=== PATIENT | male | born 1970 | race Caucasian/White ===

== ENCOUNTER 2017-11-26 10:07 | Inpatient (IN) | payer OTHER ==
[2017-11-26] VITALS (10 sets, daily range): BP systolic 101–133; BP diastolic 59–78; PULSE 75–108; RESP 16–22; TEMP 98.2–98.5; O2SAT 94–97
[~2017-11-26] VITALS: Ht 175.3 cm; Wt 98.0 kg
[~2017-11-26 10:07] MED LIST: MORPHINE SULFATE 4 MG/ML INJ IV PUSH ONE
[2017-11-26] MEDS ORDERED: IOHEXOL 350 MG/ML 10 ML VIAL (for RAD DIAG) IVCONTRAST ONE (10:08)
[2017-11-26] MEDS ORDERED: DIPHTH/TETANUS/ACEL PERTUSSIS (BOOSTER) 0.5 ML VIAL/PFS IM ONE (10:12)
[2017-11-26] MEDS ORDERED: ceFAZolin INJ 1,000 MG VIAL ONE (10:12)
[2017-11-26] MEDS ORDERED: HYDROmorphone HCL PF 2 MG/ML VIAL ONE (10:18)
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
[2017-11-26 10:36] LABS: AUTOMATED NEUTROPHIL # 3.8 TH/MM3 (1.8-7.7); BASOPHIL % 0.7 % (0.0-2.0); EOSINOPHIL # 0.1 TH/MM3 (0-0.4); EOSINOPHIL % 2.1 % (0.0-4.0); HEMATOCRIT 42.5 % (39.0-51.0); LYMPH % 17.7 % (9.0-44.0); MEAN CELL VOLUME 89.8 FL (80.0-100.0); MEAN CORPUSCULAR HEMOGLOBIN 29.7 PG (27.0-34.0); MEAN CORPUSCULAR HGB CONC 33.1 % (32.0-36.0); MEAN PLATELET VOLUME 8.6 FL (7.0-11.0); MONO % 8.8 % (0.0-8.0); MONOCYTE # 0.5 TH/MM3 (0-0.9); NEUT % 70.7 % (16.0-70.0); PLATELET COUNT 175 TH/MM3 (150-450); RED BLOOD COUNT 4.73 MIL/MM3 (4.50-5.90); RED CELL DISTRIBUTION WIDTH 15.1 % (11.6-17.2); WHITE BLOOD COUNT 5.4 TH/MM3 (4.0-11.0)
[2017-11-26 10:47] LABS: INTERNATIONAL NORMALIZED RATIO 1.1 RATIO; PROTHROMBIN TIME - PATIENT 11.2 SEC (9.8-11.6)
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
--- NOTE | 2017-11-26 12:39 | PD ---
Physical Exam Time Seen by Provider: 12:38 Data Data Last Documented VS Vital Signs Date Time Temp Pulse Resp B/P (MAP) Pulse Ox O2 Delivery O2 Flow Rate FiO2 11/26/17 11:12 94 Nasal Cannula 2.00 11/26/17 11:00 92 19 131/78 (95) Orders Orders I-Stat Profile (11/26/17 10:08) Complete Blood Count With Diff (11/26/17 10:08) Prothrombin Time / Inr (Pt) (11/26/17 10:08) Act Partial Throm Time (Ptt) (11/26/17 10:08) Type And Screen (11/26/17 10:08) Chest, Single Ap (11/26/17 10:08) Pelvis, Ap Only (Routine) (11/26/17 10:08) Ct Brain W/O Iv Contrast(Rout) (11/26/17 10:08) Ct Cerv Spine W/O Contrast (11/26/17 10:08) Ct Abd/Pel W Iv Contrast(Rout) (11/26/17 10:08) Ct Thorax/ Chest W Iv Contrast (11/26/17 10:08) Iv Access Insert/Monitor (11/26/17 10:08) Ecg Monitoring (11/26/17 10:08) Oximetry (11/26/17 10:08) Oxygen Administration (11/26/17 10:08) Tibia/Fibula (Ap/Lat) (11/26/17 ) Uxoi-Tnw-Yznnps (Booster) Inj (Boostrix (11/26/17 10:12) Cefazolin Inj (Ancef Inj) (11/26/17 10:12) Hydromorphone Pf Inj (Dilaudid Pf Inj) (11/26/17 10:18) Iohexol 350 Inj (Omnipaque 350 Inj) (11/26/17 10:08) Ct Knee W/O Contrast (11/26/17 ) Labs Laboratory Tests Test 11/26/17 10:15 White Blood Count 5.4 TH/MM3 Red Blood Count 4.73 MIL/MM3 Hemoglobin 14.0 GM/DL Bedside Hemoglobin 11.6 G/DL Hematocrit 42.5 % Bedside Hematocrit 34.0 % Mean Corpuscular Volume 89.8 FL Mean Corpuscular Hemoglobin 29.7 PG Mean Corpuscular Hemoglobin Concent 33.1 % Red Cell Distribution Width 15.1 % Platelet Count 175 TH/MM3 Mean Platelet Volume 8.6 FL Neutrophils (%) (Auto) 70.7 % Lymphocytes (%) (Auto) 17.7 % Monocytes (%) (Auto) 8.8 % Eosinophils (%) (Auto) 2.1 % Basophils (%) (Auto) 0.7 % Neutrophils # (Auto) 3.8 TH/MM3 Lymphocytes # (Auto) 1.0 TH/MM3 Monocytes # (Auto) 0.5 TH/MM3 Eosinophils # (Auto) 0.1 TH/MM3 Basophils # (Auto) 0.0 TH/MM3 CBC Comment DIFF FINAL Differential Comment Prothrombin Time 11.2 SEC Prothromb Time International Ratio 1.1 RATIO Activated Partial Thromboplast Time 21.5 SEC Bedside Sodium 138 MMOL/L Bedside Potassium 6.3 MMOL/L Bedside Chloride 106 MMOL/L Bedside Blood Urea Nitrogen 21 MG/DL Bedside Creatinine 1.3 MG/DL Bedside Glucose 173 MG/DL [facility] Medical Record Reviewed: Yes Supervised Visit with ABIDA: No Procedures Procedure Narrative LACERATION LOCATION: Right lower extremity LENGTH: 6 cm NUMBER OF STITCHES/DENNYS: 4 horizontal mattress REPAIR: The area of the laceration was prepped with Betadine and sterilely draped. The laceration was infiltrated with 1% lidocaine with epinephrine. The wound was copiously irrigated and explored without evidence of foreign body , tendon injury or neurovascular injury. The wound was closed using 4-0 Prolene. This was a single layer repair. Patient tolerated the procedure well. Diagnosis Primary Impression: Right patella fracture Additional Impressions: Fall from high place Laceration of right lower leg Scripts No Active Prescriptions or Reported Meds Mary Lujan November 26, 2017 12:39
--- NOTE | 2017-11-26 14:12 | RADRPT ---
EXAM DATE/TIME: 11/26/2017 13:23 [facility] COMPARISON: TIBIA/FIBULA RIGHT (AP/LAT), November 26, 2017, 10:09. CT THORAX W CONTRAST, November 26, 2017, 10:25. INDICATIONS : Trauma, painful right knee. RADIATION DOSE: 14.40 CTDIvol (mGy) MEDICAL HISTORY : None SURGICAL HISTORY : None. ENCOUNTER: Initial ACUITY: 1 day PAIN SCALE: 10/10 LOCATION: Right knee TECHNIQUE: Volumetric scanning of the knee was performed. Using automated exposure control and adjustment of th e mA and/or kV according to patient size, radiation dose was kept as low as reasonably achievable to obtain optimal diagnostic quality images. DICOM format image data is available electronically for re view and comparison. FINDINGS: Examination of the right knee demonstrates a comminuted, minimally displaced fracture of the patella. The remainder the visualized osseous structures are intact. There is a moderate sized joint effusion . CONCLUSION: 1. Comminuted fracture of the patella with minimal distraction. There is approximately 4 mm of distra ction of the superior fragment. The articular surface appears fairly well aligned. The osseous struct ures of the knee are otherwise intact. 2. Moderate size joint effusion. Lefty Castillo MD on November 26, 2017 at 14:07 Board Certified Radiologist. This report was verified electronically.
[2017-11-26] MEDS ORDERED: ACETAMINOPHEN/HYDROcodone 325 MG/5 MG TAB PO ONE (15:15)
[2017-11-26] MEDS ORDERED: ACETAMINOPHEN/HYDROcodone 325 MG/5 MG TAB PO PRN (17:00)
[2017-11-26] MEDS ORDERED: ENALAPRILAT 1.25 MG/ML VIAL IV PUSH PRN (17:00)
[2017-11-26] MEDS ORDERED: MAGNESIUM HYDROXIDE SUSP 30 ML CUP PO PRN (17:00)
[2017-11-26] MEDS ORDERED: ONDANSETRON ODT 4 MG TAB SL PRN (17:15)
[2017-11-26] MEDS: HYDROmorphone HCL PF 0.5 MG/0.5 ML SYRINGE IV PRN ×3 (17:27→23:52)
[2017-11-26] MEDS: SODIUM CHLORIDE 0.9% FLUSH 10 ML FLUSH IV FLUSH PRN ×2 (17:28→23:50)
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
[2017-11-26] MEDS ORDERED: PANTOPRAZOLE SODIUM 40 MG VIAL IVP SCH (18:00)
[2017-11-26] MEDS: SODIUM CHLOR 0.9% 1000 ML INJ 1,000 ML IV SCH (18:05)
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
[2017-11-26] MEDS: ACETAMINOPHEN/HYDROcodone 325 MG/5 MG TAB PO PRN (20:50)
[2017-11-26] MEDS ORDERED: DOCUSATE SODIUM 100 MG CAP PO SCH (21:00)
[2017-11-27] MEDS: SODIUM CHLOR 0.9% 1000 ML INJ 1,000 ML IV SCH ×2 (02:05→23:00)
[2017-11-27] MEDS: ACETAMINOPHEN/HYDROcodone 325 MG/5 MG TAB PO PRN (02:27)
[2017-11-27 03:51] VITALS: BP 109/69; PULSE 78; RESP 16; TEMP 98.3; O2SAT 94
[2017-11-27] MEDS: HYDROmorphone HCL PF 0.5 MG/0.5 ML SYRINGE IV PRN ×2 (05:28→17:35)
[2017-11-27] MEDS: METHOCARBAMOL 500 MG TAB PO SCH ×3 (06:54→21:09)
[2017-11-27 07:34] LABS: AUTOMATED NEUTROPHIL # 1.8 TH/MM3 (1.8-7.7); BASOPHIL % 0.4 % (0.0-2.0); EOSINOPHIL # 0.3 TH/MM3 (0-0.4); EOSINOPHIL % 7.9 % (0.0-4.0); HEMOGLOBIN 12.3 GM/DL (13.0-17.0); LYMPH % 25.7 % (9.0-44.0); LYMPHOCYTE # 0.8 TH/MM3 (1.0-4.8); MEAN CORPUSCULAR HEMOGLOBIN 29.8 PG (27.0-34.0); MEAN CORPUSCULAR HGB CONC 33.1 % (32.0-36.0); MEAN PLATELET VOLUME 10.1 FL (7.0-11.0); MONO % 10.4 % (0.0-8.0); MONOCYTE # 0.3 TH/MM3 (0-0.9); NEUT % 55.6 % (16.0-70.0); PLATELET COUNT 129 TH/MM3 (150-450); RED BLOOD COUNT 4.11 MIL/MM3 (4.50-5.90); RED CELL DISTRIBUTION WIDTH 15.9 % (11.6-17.2); WHITE BLOOD COUNT 3.2 TH/MM3 (4.0-11.0)
[2017-11-27 08:00] VITALS: BP 117/73; PULSE 82; RESP 16; TEMP 98; O2SAT 96
[2017-11-27 08:06] LABS: ALKALINE PHOSPHATASE 57 U/L (45-117); TOTAL PROTEIN 6.8 GM/DL (6.4-8.2)
[2017-11-27 08:08] LABS: ALBUMIN 3.1 GM/DL (3.4-5.0); ALT (GPT) 47 U/L (12-78); AST (GOT) 68 U/L (15-37); BICARBONATE 23.9 MEQ/L (21.0-32.0); BLOOD UREA NITROGEN 10 MG/DL (7-18); CALCIUM 7.6 MG/DL (8.5-10.1); CHLORIDE 106 MEQ/L (98-107); CREATININE 0.94 MG/DL (0.60-1.30); GLOMERULAR FILTRATION RATE 69 ML/MIN (>89); GLUCOSE,RANDOM 83 MG/DL (74-106); SODIUM (NA) 138 MEQ/L (136-145)
[2017-11-27] MEDS: ACETAMINOPHEN/HYDROcodone 325 MG/10 MG TAB PO PRN ×5 (09:36→23:58)
[2017-11-27] MEDS: DOCUSATE SODIUM 50 MG/SENNA 8.6 MG TAB PO SCH ×2 (09:37→21:09)
[2017-11-27] MEDS: FAMOTIDINE 20 MG TAB PO SCH ×2 (09:37→21:09)
[2017-11-27] MEDS: LIDOCAINE HCL 5% PATCH T-DERMAL SCH (09:38)
--- NOTE | 2017-11-27 10:38 | RADRPT ---
EXAM DATE/TIME: 11/27/2017 10:10 [facility] COMPARISON: No previous studies available for comparison. INDICATIONS : Trauma. MEDICAL HISTORY : None. SURGICAL HISTORY : None. ENCOUNTER: Subsequent ACUITY: 2 days PAIN SCORE: 10/10 LOCATION: Right Ankle. FINDINGS: The ankle was performed in a leg splint. The osseous structures are grossly in normal alignment. No fracture seen. There is mild lateral soft tissue swelling. No radiopaque foreign bodies seen. CONCLUSION: Lateral soft tissue swelling. No evidence of fracture or dislocation. Adonay Bourgeois MD on November 27, 2017 at 10:35 Board Certified Radiologist. This report was verified electronically.
[2017-11-27 12:00] VITALS: BP 120/69; PULSE 79; RESP 16; TEMP 97.9; O2SAT 95
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
[2017-11-27 16:00] VITALS: BP 120/78; PULSE 89; RESP 16; TEMP 98; O2SAT 94
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
[2017-11-27] MEDS ORDERED: PERI PO (19:54)
[2017-11-27] MEDS ORDERED: MAGN30S PO (19:54)
--- NOTE | 2017-11-27 19:57 | HHI.FF ---
Face to Face Verification Diagnosis: (1) Traumatic compression fracture of T4 thoracic vertebra (2) Laceration of right lower leg (3) Right patella fracture (4) Fall from high place Physical Therapy Order: Evaluate and Treat, Improve ambulation, Strength and gait training Home Health Nursing Order: Medical education Signs/symptoms of disease process Medication education-adverse effect Nursing assessment with vital signs I have seen patient Carols Caraballo on 11/27/17. My clinical findings support the need for the requested home health care services because: Ltd mobility - disease progression Deconditioned w/ increased weakness Limited ability to care for self High risk of falls Infection w/ risk of complications I certify that my clinical findings support that this patient is homebound because: Post-op weakness Unsteady gait/balance Unsafe to leave home unassisted Aju-[id number]-[id number] bed/chair Unable to use public transportation Nayeli Blue November 27, 2017 19:57
[2017-11-27] MEDS ORDERED: WALKER WHEELS/F1 MIS (19:58)
[2017-11-27 20:00] VITALS: BP 114/65; PULSE 89; RESP 20; TEMP 97.9; O2SAT 92
[2017-11-27] MEDS: REMOVE OLD PATCH-LIDOCAINE T-DERMAL SCH (21:13)
[2017-11-27 23:59] VITALS: BP 122/73; PULSE 92; RESP 18; TEMP 97.8; O2SAT 94
[2017-11-28] VITALS (7 sets, daily range): BP systolic 114–132; BP diastolic 64–78; PULSE 78–92; RESP 18; TEMP 97.6–98.4; O2SAT 91–97
[2017-11-28] MEDS: ACETAMINOPHEN/HYDROcodone 325 MG/10 MG TAB PO PRN ×5 (05:47→20:35)
[2017-11-28] MEDS: METHOCARBAMOL 500 MG TAB PO SCH ×3 (05:47→20:36)
[2017-11-28] MEDS: FAMOTIDINE 20 MG TAB PO SCH ×2 (07:54→20:36)
[2017-11-28] MEDS: HYDROmorphone HCL PF 0.5 MG/0.5 ML SYRINGE IV PRN ×5 (07:54→21:56)
[2017-11-28] MEDS: DOCUSATE SODIUM 50 MG/SENNA 8.6 MG TAB PO SCH ×2 (07:54→20:36)
[2017-11-28] MEDS: LIDOCAINE HCL 5% PATCH T-DERMAL SCH (08:01)
[2017-11-28] MEDS: SODIUM CHLOR 0.9% 1000 ML INJ 1,000 ML IV SCH ×2 (09:00→18:25)
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
--- NOTE | 2017-11-28 10:33 | RADRPT ---
EXAM DATE/TIME: 11/28/2017 09:43 [facility] COMPARISON: CT THORACIC SPINE W CONTRAST, November 26, 2017, 10:25. CT THORAX W CONTRAST, November 26, 2017, 10:25. INDICATIONS : Evaluate T4 compression fracture. MEDICAL HISTORY : None. SURGICAL HISTORY : None. ENCOUNTER: Initial ACUITY: 2 days PAIN SCORE: 0/10 LOCATION: Bilateral thoracic spine FINDINGS: Recent CT had demonstrated a compression deformity of the T4 vertebral body with some sclerosis of th e superior one third. On the frontal view, there is some mild flattening of the superior margin of T 4. The upper thoracic vertebral bodies are not well seen on 2 different lateral views performed. Ca nnot assess the upper 6 levels of the thoracic spine in lateral projection. No evidence of spondylol isthesis. CONCLUSION: No gross abnormality seen. Poor visualization of the upper thoracic spine on lateral projection prec ludes accurate assessment of the T4 level. Adonay Bourgeois MD on November 28, 2017 at 10:27 Board Certified Radiologist. This report was verified electronically.
[2017-11-28] MEDS: ENOXAPARIN SODIUM 40 MG/0.4 ML SYRINGE SQ SCH (12:44)
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
[2017-11-28] MEDS: MAGNESIUM HYDROXIDE SUSP 30 ML CUP PO SCH (20:36)
[2017-11-28] MEDS: REMOVE OLD PATCH-LIDOCAINE T-DERMAL SCH (20:43)
[2017-11-29 03:30] VITALS: BP 127/77; PULSE 83; RESP 18; TEMP 98.6; O2SAT 90
[2017-11-29] MEDS: ACETAMINOPHEN/HYDROcodone 325 MG/10 MG TAB PO PRN ×5 (04:27→23:56)
[2017-11-29] MEDS: SODIUM CHLOR 0.9% 1000 ML INJ 1,000 ML IV SCH ×2 (04:27→14:35)
[2017-11-29] MEDS: METHOCARBAMOL 500 MG TAB PO SCH ×3 (06:26→22:28)
[2017-11-29] MEDS: HYDROmorphone HCL PF 0.5 MG/0.5 ML SYRINGE IV PRN ×4 (06:26→20:43)
[2017-11-29 08:00] VITALS: BP 102/60; PULSE 72; RESP 18; TEMP 97.8; O2SAT 92
[2017-11-29] MEDS: LIDOCAINE HCL 5% PATCH T-DERMAL SCH (08:44)
[2017-11-29] MEDS: DOCUSATE SODIUM 50 MG/SENNA 8.6 MG TAB PO SCH ×2 (08:45→20:42)
[2017-11-29] MEDS: FAMOTIDINE 20 MG TAB PO SCH ×2 (08:45→20:42)
[2017-11-29] MEDS: MAGNESIUM HYDROXIDE SUSP 30 ML CUP PO SCH ×2 (08:45→20:42)
[2017-11-29] MEDS: ENOXAPARIN SODIUM 40 MG/0.4 ML SYRINGE SQ SCH (10:59)
[2017-11-29] MEDS ORDERED: WHEEMIS3 (11:34)
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
[2017-11-29 12:00] VITALS: BP 126/81; PULSE 76; RESP 18; TEMP 97.5; O2SAT 92
--- NOTE | 2017-11-29 13:22 | PD.ORT.PN ---
Subjective Subjective Remarks Pain controlled Objective Vitals Vital Signs Date Time Temp Pulse Resp B/P (MAP) Pulse Ox O2 Delivery O2 Flow Rate FiO2 11/29/17 08:00 92 Room Air 11/29/17 08:00 97.8 72 18 102/60 (74) 92 11/29/17 03:30 98.6 83 18 127/77 (94) 90 11/28/17 23:40 98.3 92 18 132/78 (96) 91 11/28/17 23:10 Room Air 11/28/17 22:13 18 11/28/17 21:55 18 11/28/17 21:41 Room Air 11/28/17 19:00 97.6 86 18 126/77 (93) 92 11/28/17 16:00 97.8 81 18 118/77 (91) 95 11/28/17 15:00 96 Room Air I/O 11/28/17 11/28/17 11/28/17 11/29/17 11/29/17 11/29/17 07:00 15:00 23:00 07:00 15:00 23:00 Intake Total 400 ml 700 ml 400 ml Output Total 400 ml 800 ml 600 ml Balance 0 ml -100 ml 400 ml -600 ml Intake Oral 400 ml 700 ml 400 ml Output Urine Total 400 ml 800 ml 600 ml # Voids 0 # Bowel Movements 0 Result Diagram: 11/27/1720 11/27/17 0620 Objective Remarks Right lower extremity splint and cooling unit in place calves soft negative angella foot neuro and vascular intact Assessment & Plan Assessment and Plan Right patella fracture T4 thoracic compression fracture Non operative management Weight bearing as tolerated with splint D/C planning home vs SNF Monitor Maynor Mcginnis MD November 29, 2017 13:22
[2017-11-29 15:51] VITALS: BP 109/75; PULSE 78; RESP 18; TEMP 98.1; O2SAT 92
[2017-11-29 20:00] VITALS: BP 110/68; PULSE 82; RESP 18; TEMP 98.5; O2SAT 94
[2017-11-29] MEDS: REMOVE OLD PATCH-LIDOCAINE T-DERMAL SCH (20:45)
[2017-11-30] VITALS: BP 112/73; PULSE 73; RESP 16; TEMP 98.2; O2SAT 93
[2017-11-30] MEDS: SODIUM CHLOR 0.9% 1000 ML INJ 1,000 ML IV SCH ×2 (01:00→10:49)
[2017-11-30] MEDS: METHOCARBAMOL 500 MG TAB PO SCH ×2 (05:10→13:48)
[2017-11-30] MEDS: ACETAMINOPHEN/HYDROcodone 325 MG/10 MG TAB PO PRN ×3 (05:11→13:48)
[2017-11-30] MEDS: HYDROmorphone HCL PF 0.5 MG/0.5 ML SYRINGE IV PRN ×2 (06:28→10:49)
[2017-11-30 08:00] VITALS: BP 107/72; PULSE 67; RESP 18; TEMP 97.9; O2SAT 94
[2017-11-30] MEDS: FAMOTIDINE 20 MG TAB PO SCH (08:19)
[2017-11-30] MEDS: DOCUSATE SODIUM 50 MG/SENNA 8.6 MG TAB PO SCH (08:19)
[2017-11-30] MEDS: MAGNESIUM HYDROXIDE SUSP 30 ML CUP PO SCH (08:19)
[2017-11-30] MEDS: LIDOCAINE HCL 5% PATCH T-DERMAL SCH (08:20)
[2017-11-30] MEDS: ENOXAPARIN SODIUM 40 MG/0.4 ML SYRINGE SQ SCH (08:20)
[2017-11-30] MEDS ORDERED: HYDR-3583 PO (08:46)
[2017-11-30] MEDS ORDERED: LIDO1ADH4 T-DERMAL (08:46)
[2017-11-30] MEDS ORDERED: METH500T3 PO (08:46)
[2017-11-30] MEDS ORDERED: ADJUSTABLE COMM1 MIS (10:39)
[2017-11-30 12:00] VITALS: BP 119/73; PULSE 77; RESP 17; TEMP 97.8; O2SAT 93
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
[2017-11-30 15:12] VITALS: RESP 18
== END 2017-11-30 16:23 | disposition home health service (06) | DRG 563 ==
LOC: NEPI 10:07 → NEDA 16:29 → NEPHCDU 17:49 → EDBD 20:51 → OBSVTOIN 20:51 → N06B 11-27 07:37
PROVIDERS: ADMIT Surgery; ATTEND Surgery
PROC: 0HQKXZZ Repair Right Lower Leg Skin, External Approach (ICD-10-PCS; principal; 2017-11-26)
DX: S82.041A Displaced comminuted fracture of right patella, initial encounter for closed fracture (principal); S22.048A Other fracture of fourth thoracic vertebra, initial encounter for closed fracture; S81.811A Laceration without foreign body, right lower leg, initial encounter; S06.0X9A Concussion with loss of consciousness of unspecified duration, initial encounter; R40.2410 Glasgow coma scale score 13-15, unspecified time; Z23 Encounter for immunization; Y30.XXXA Falling, jumping or pushed from a high place, undetermined intent, initial encounter
CPT/HCPCS: 12002; 29505; 70450; 71045; 71260; 72072; 72125; 72129; 72170; 73590; 73600; 73700; 74177; 80048; 80053; 85025; 85610; 85730; 86850; 86900; 86901; 90471; 90715; 94150; 96374; 96375; 99291; A0431-QM-SH; A0436-QM-SH; C9113; E0113; G0390; J0690; J1170; J1650; J2270; J7030; L1830; Q9967